=== PATIENT | female | born 1995 | race Hispanic/Latino ===

== ENCOUNTER → 2021-03-02 10:48 | Outpatient (CLI) | payer OTHER, SELFPAY ==
[2021-03-02] MEDS: COVID-19 VACC #2, MRNA(MOD) 100 MCG/0.5 ML VIAL IM (10:57)
== END ==
PROVIDERS: PCP Registered Nurse Diabetes Educator; Visit Provider Internal Medicine
DX: Z23 Encounter for immunization (principal)
CPT/HCPCS: 0012A; 91301

== ENCOUNTER → 2022-07-25 12:52 | Outpatient (CLI) | payer OTHER, SELFPAY ==
[2022-07-25 14:31] LABS: Add Manual Diff / Slide Review NO; Basophils Absolute Auto 0 /uL (0-100); Basophils Percent Auto 0.4 % (0-2); Eosinophils Absolute Auto 200 /uL (0-450); Hematocrit 39.3 % (36-46); Hemoglobin 13.8 g/dL (12.0-16.0); Lymphocytes Absolute Auto 1400 /uL (1100-4500); Lymphocytes Percent Auto 15.2 % (25-40); Mean Corpuscular Hemoglobin 32.9 PG (26-34); Mean Corpuscular Volume 93.9 fL (80-100); Monocytes Absolute Auto 800 /uL (0-900); Monocytes Percent Auto 8.2 % (3-14); Neutrophils Absolute Auto 6900 /uL (1500-7000); Neutrophils Percent Auto 74.2 % (50-75); Platelet Count 280 X10^3/uL (150-400); Red Blood Cell Count 4.19 X10^6/uL (4.0-5.2); Red Cell Distribution Width 12.7 % (11.6-14.8); White Blood Cell Count 9.3 X10^3/uL (4.5-11.0)
[2022-07-25 15:25] LABS: Appearance Urine UA CLEAR; Bilirubin Urine UA NEGATIVE (NEGATIVE); Color Urine UA YELLOW; Glucose Urine UA NEGATIVE (Negative); Ketones Urine UA NEGATIVE (NEGATIVE); Leukocyte Esterase Urine UA TRACE (NEGATIVE); Nitrite Urine UA NEGATIVE (Negative); Occult Blood Urine UA NEGATIVE (Negative); Protein Urine UA NEGATIVE (Negative); Urobilinogen Urine UA 0.2 E.U./dL (0.2)
[2022-07-25 15:26] LABS: pH Urine UA 6.5 (4.5-8.0)
[2022-07-25 16:56] LABS: Bacteria Urine Few (2-10); RBC Urine 1-5/HPF (0-5/HPF); Squamous Epithelial Cell Urine 5-10 /HPF (0-5/HPF); WBC Urine 5-10/HPF (0-5/HPF)
[2022-07-26 07:09] LABS: RPR Screen Non Reactive (Non Reactive)
[2022-07-26 11:36] LABS: Varicella IgG Antibody 152 index (Immune >165)
[2022-07-26 16:10] LABS: Hepatitis B Surface Antigen NEGATIVE s/c (NEGATIVE); Rubella Antibody IgG 10.9 IU/mL (>15)
[2022-07-26 16:22] LABS: HIV 1 & 2 Ab/Ag 4th Gen Combo NEGATIVE (NEGATIVE); Hep C Virus Ab w/Reflex Quant NEGATIVE s/c (NEGATIVE)
== END ==
PROVIDERS: PCP Registered Nurse Diabetes Educator; Referring Provider Family Medicine; Visit Provider Family Medicine
DX: Z34.01 Encounter for supervision of normal first pregnancy, first trimester (principal)
CPT/HCPCS: 36415; 80055; 81003; 81015; 86787; 86803; 86850; 86900; 86901; 87086; 87389

== ENCOUNTER → 2022-09-19 16:51 | Outpatient (CLI) | payer OTHER, SELFPAY ==
[2022-09-22 18:07] LABS: AFP, Serum 40.3 ng/mL (.); Estriol, Free 1.43 ng/mL (.); Inhibin A, Dimeric 149.58 pg/mL (.); Inhibin A, MoM 0.84 (.); Maternal Ethnicity Other (.); Maternal Weight 124 lbs (.); Number of Fetuses No (.); OSBR Risk 1 IN 10000 (.); Results Report (.); Test Results *Screen Negative* (.); hCG, MoM 0.41 (.); hCG, Serum 18834 mIU/mL (.)
== END ==
PROVIDERS: PCP Registered Nurse Diabetes Educator; Referring Provider Family Medicine; Visit Provider Family Medicine
DX: Z34.92 Encounter for supervision of normal pregnancy, unspecified, second trimester (principal); Z13.79 Encounter for other screening for genetic and chromosomal anomalies; Z3A.20 20 weeks gestation of pregnancy
CPT/HCPCS: 36415; 82105; 82677; 84702; 86336

== ENCOUNTER → 2022-10-18 08:43 | Outpatient (CLI) | payer OTHER, SELFPAY ==
--- NOTE | 2022-10-18 08:46 | DI.US.S_ITS ---
PROCEDURE: US OB >= 14 WEEKS FETUS INDICATIONS: Anatomy Scan OUTSIDE/PRIOR DATING DATA: Last menstrual period (LMP): 05/28/2022. LMP-based estimated date of delivery (GARY): 03/03/2023. First dating scan (date and location): 07/25/2022. Estimated date of delivery (GARY) from first dating scan: 02/28/2023. The calculations are made using the ultrasound GARY of 02/28/2023. TECHNIQUE: Real-time scanning was performed of the fetus, with image documentation and biometric measurements. COMPARISON: None. FINDINGS: General: A single living intrauterine gestation is present. Presentation: Vertex. Placenta: Placental position is posterior. Marginal placental previa. Amniotic fluid index: 11.1 cm, normal range is 5-24 cm. Single deepest vertical pocket is 4.2 cm. heart rate: 153 beats per minute. Maternal cervical canal: 4 cm long. Normal lower limit is 2.5 cm. biometrics: Biparietal diameter: 4.7 cm, 20 weeks 2 days Head circumference: 18.1 cm, 20 weeks 4 days Abdominal circumference: 15.1 cm, 20 weeks 2 days Femur length: 3.5 cm, 21 weeks 0 days Clinically estimated gestational age: 21 weeks 0 days Composite gestational age from present scan: 20 weeks 4 days Estimated weight and percentile: 366 g, 26 percentile Anatomic survey: Neuro: Ventricles are non-dilated at less than 10 mm. Cisterna magna is normal at 3-11 mm. Cerebellum is normal in size and morphology. Nuchal skin fold: Normal at less than 6 mm between 14-21 weeks gestational age. Face: Nose and lips, facial profile are normal. Spine: No evidence for spina bifida. Heart: 4-chambered heart is present, with normal ventricular outflow tracts. Diaphragm: Diaphragm is intact. Stomach: Left-sided stomach is present. Kidneys: No hydronephrosis. Normal is less than 5 mm in 2nd trimester, less than 7 mm in 3rd trimester. Cord: 3-vessel cord has orthotopic insertion. Bladder: Normal in size. Extremities: All 4 extremities identified. IMPRESSION: 1. Aragon living intrauterine at 20 weeks 4 days based on today's ultrasound. Fetus is in the 26 percentile for weight. 2. Normal amniotic fluid. Marginal placental previa. 3. Normal and complete anatomic survey. Recommend follow-up OB ultrasound to evaluate the placenta. We strive to produce accurate, complete, and clear reports of imaging services. To assist us in improving patient care, this report was composed using standard report templates and voice recognition software. Therefore, it may contain abnormal punctuation, insertions and/or omissions. Occasional wrong-word or sound-alike substitutions may occur. Though we review the report and make efforts to correct it, we do recommend that the report be read carefully in proper context to recognize any text inaccuracies. Dictated by: Jona Paniagua M.D. on 10/18/2022 at 10:19 Approved by: Jona Paniagua M.D. on 10/18/2022 at 10:24
== END ==
PROVIDERS: PCP Registered Nurse Diabetes Educator; Referring Provider Family Medicine; Visit Provider Family Medicine
DX: O44.22 Partial placenta previa NOS or without hemorrhage, second trimester (principal); Z3A.20 20 weeks gestation of pregnancy
CPT/HCPCS: 76811

== ENCOUNTER → 2022-11-08 15:38 | Outpatient (CLI) | payer OTHER, SELFPAY ==
--- NOTE | 2022-11-08 15:39 | DI.US.S_ITS ---
PROCEDURE: US OB FOLLOW UP INDICATIONS: placental placement OUTSIDE/PRIOR DATING DATA: Last menstrual period (LMP): 05/28/2022 LMP-based estimated date of delivery (GARY): 03/03/2023 First dating scan (date and location): 07/25/2022 Estimated date of delivery (GARY) from first dating scan: 02/28/2023 The calculations are made using the working GARY of 02/28/2023 TECHNIQUE: Real-time scanning was performed of the fetus, with image documentation. Endovaginal scanning: Performed for better visualization of the cervix COMPARISON: [facility], OB >= 14 WEEKS FETUS, 10/18/2022, 8:55. FINDINGS: A single living intrauterine gestation is present. Presentation: Vertex Placenta: Placental position is posterior. The inferior placental margin is approximately 0.7 cm from the internal cervical os. Amniotic fluid index: 12.1 cm, normal range is 5-24 cm. Single deepest vertical pocket is 3.3 cm. heart rate: 143 beats per minute. Maternal cervical canal: 4.1 cm long. Normal lower limit is 2.5 cm. Clinically estimated gestational age: 24 weeks 0 days IMPRESSION: 1. Single live intrauterine . 2. Low lying placenta with inferior placental margin approximately 0.7 cm from the internal cervical os. Cervix is normal in length and closed. 3. Normal in amniotic fluid index at 12.1 cm. Approved by: Rigoberto Stevens M.D. on 11/08/2022 at 20:11
== END ==
PROVIDERS: PCP Registered Nurse Diabetes Educator; Referring Provider Family Medicine; Visit Provider Family Medicine
DX: O44.02 Complete placenta previa NOS or without hemorrhage, second trimester (principal)
CPT/HCPCS: 76816; 76817

== ENCOUNTER → 2022-11-30 09:22 | Outpatient (CLI) | payer OTHER, SELFPAY ==
[2022-11-30 11:28] LABS: Hemoglobin 11.8 g/dL (12.0-16.0)
[2022-11-30 12:03] LABS: GTT (PREG) 1 Hour PP 50gm Dose 115 mg/dL (76-139)
== END ==
PROVIDERS: PCP Registered Nurse Diabetes Educator; Referring Provider Family Medicine; Visit Provider Family Medicine
DX: Z34.90 Encounter for supervision of normal pregnancy, unspecified, unspecified trimester (principal); Z3A.28 28 weeks gestation of pregnancy
CPT/HCPCS: 82950; 85014; 85018

== ENCOUNTER → 2022-12-17 09:03 | Outpatient (CLI) | payer OTHER, SELFPAY ==
--- NOTE | 2022-12-17 09:04 | DI.US.S_ITS ---
PROCEDURE: US OB FOLLOW UP INDICATIONS: FOLLOW-UP LOW-LYING PLACENTA OUTSIDE/PRIOR DATING DATA: Last menstrual period (LMP): 05/28/2022 LMP-based estimated date of delivery (GARY): 03/03/2023 First dating scan (date and location): 07/25/2022. Estimated date of delivery (GARY) from first dating scan: 02/28/2023. The calculations are made using the working GARY of 02/28/2023. TECHNIQUE: Real-time scanning was performed of the fetus, with image documentation. Endovaginal scanning: Not indicated COMPARISON: , , OB FOLLOW UP, 11/08/2022, 15:48. FINDINGS: A single living intrauterine gestation is present. Presentation: Vertex Placenta: Placental position is posterior, without previa. Inferior edge of placenta is now 5.8 cm from internal os. Amniotic fluid index: 11.7 cm, normal range is 5-24 cm. Single deepest vertical pocket is 3.6 cm. heart rate: 144 beats per minute. Maternal cervical canal: 3.2 cm long. Normal lower limit is 2.5 cm. Clinically estimated gestational age: Not available Estimated gestational age from initial scan: 29 weeks, 4 days. IMPRESSION: 1. Single live intrauterine gestation with fetus in vertex presentation. heart rate is 144 beats per minute. Normal amount of amniotic fluid. 2. Inferior edge of placenta is now 5.8 cm from internal os and is within normal limits. Dictated by: Rasheed Burnett M.D. on 12/17/2022 at 11:10 Approved by: Rasheed Burnett M.D. on 12/17/2022 at 11:24
== END ==
PROVIDERS: PCP Registered Nurse Diabetes Educator; Referring Provider Family Medicine; Visit Provider Family Medicine
DX: O44.03 Complete placenta previa NOS or without hemorrhage, third trimester (principal); Z3A.29 29 weeks gestation of pregnancy
CPT/HCPCS: 76816

== ENCOUNTER → 2023-02-08 15:13 | Outpatient (CLI) | payer OTHER, SELFPAY ==
[2023-02-09 20:42] LABS: Strep Grp B PCR NEG for Grp B Strep
== END ==
PROVIDERS: PCP Registered Nurse Diabetes Educator; Visit Provider Family Medicine
DX: Z34.03 Encounter for supervision of normal first pregnancy, third trimester (principal); Z3A.36 36 weeks gestation of pregnancy
CPT/HCPCS: 87653

== ENCOUNTER 2023-02-11 06:15 | Observation (INO) | payer OTHER, SELFPAY ==
[2023-02-11 06:56] VITALS: BP 122/79
== END 2023-02-11 08:35 | disposition home or self-care (01) ==
PROVIDERS: Admitting Provider Family Medicine; PCP Registered Nurse Diabetes Educator; Referring Provider Family Medicine; Visit Provider Family Medicine
DX: O36.8130 Decreased fetal movements, third trimester, not applicable or unspecified (principal); O46.93 Antepartum hemorrhage, unspecified, third trimester; Z3A.37 37 weeks gestation of pregnancy
CPT/HCPCS: 59025; 59050; G0378; G0379

== ENCOUNTER 2023-02-11 16:41 | Inpatient (IN) | payer OTHER, SELFPAY ==
[2023-02-11 19:24] LABS: Add Manual Diff / Slide Review NO; Basophils Absolute Auto 100 /uL (0-100); Basophils Percent Auto 0.6 % (0-2); Eosinophils Absolute Auto 100 /uL (0-450); Eosinophils Percent Auto 0.6 % (2-4); Hematocrit 35.6 % (36-46); Lymphocytes Absolute Auto 2300 /uL (1100-4500); Lymphocytes Percent Auto 21.4 % (25-40); Mean Corpuscular HGB Conc 33.7 % (30-36); Mean Corpuscular Hemoglobin 30.1 PG (26-34); Mean Corpuscular Volume 89.3 fL (80-100); Monocytes Absolute Auto 1000 /uL (0-900); Monocytes Percent Auto 9.4 % (3-14); Neutrophils Absolute Auto 7400 /uL (1500-7000); Platelet Count 213 X10^3/uL (150-400); Red Blood Cell Count 3.99 X10^6/uL (4.0-5.2); Red Cell Distribution Width 13.8 % (11.6-14.8); White Blood Cell Count 10.8 X10^3/uL (4.5-11.0)
--- NOTE | 2023-02-11 20:19 | PM.OBHP.IH.1 ---
OB HPI Date/Time Date of admission: 02/11/23 Date Patient Seen: 02/11/23 History of Present Condition Chief complaint: OBS/LABOR GARY Calculator Estimated Delivery Date Method Current WG Current Estimate 03/03/23 Manual 37w 1d Final GARY - CHIKA Other Estimates 03/03/23 LMP (Certain) 37w 1d 02/28/23 Ultrasound #1 37w 4d Estimated Gestational Age (weeks): 37w1d : 1 Para: 0 Narrative: 27yo at 37w1d who presented with regular painful contractions. Pt reports contractions starting earlier today. She had a gush of fluid around 16:00. She has had vaginal spotting/bleeding today as well. She is feeling her baby move regularly. Her was complicated by marginal previa, resolved on repeat u/s. care: good care, initiated at week # (8) and pounds weight gain (39) Dating criteria OB: LMP confirmed by 1st trimester US Ultrasounds: normal 1st trimester US and normal mid trimester US (marginal previa, resolved on repeat) Obstetrical complications: none Medical complications OB: none Preadmission Labs Last OB Lab Results: Blood Type A Positive 07/25/22 13:26 Antibody Screen Negative 07/25/22 13:26 Hematocrit 35.6 % (36-46) L 02/11/23 17:40 Hemoglobin 12.0 g/dL (12.0-16.0) 02/11/23 17:40 Hepatitis B Surface Antigen Negative s/c (NEGATIVE) 07/25/22 13:26 Hepatitis C Antibody Negative s/c (NEGATIVE) 07/25/22 13:26 Rubella Antibody 10.9 IU/mL (>15) L 07/25/22 13:26 Varicella-Zoster IgG Antibody 152 index (Immune >165) L 07/25/22 13:26 Glucose 1 Hour 115 mg/dL (76-139) 11/30/22 10:42 Group B Streptococcus (PCR) Neg for grp b strep 02/08/23 15:13 -: Urine: negative Genetic Screens: Quad screen: Normal External Labs -: Urine: negative Evaluation Evaluation Baseline heart rate: 120 Variability: Moderate (11-25) monitor accelerations: Present Monitor Decelerations: Absent Contraction Frequency (minutes): 3 Uterine Contraction Intensity: Strong/Firm Status: Category l Dilation (cm): 5.5 Effacement (%): 90 station: -1 [facility] Medical History Anxiety (2012) Encounter for routine adult health examination without abnormal findings Hayfever (2009) History of heavy periods (2009) Irregular periods/menstrual cycles (2008) Painful menstrual periods (2009) Surgical History Anesthesia History of third molar tooth extraction (~2011) History of tonsillectomy and adenoidectomy (~2001) Family History Father Hyperlipidemia Sleep apnea Mother Breast cancer Seasonal allergies Anxiety H/O: hysterectomy Brother No problems noted. Sister No problems noted. Grandfather Heart disease Heart attack Grandmother Heart failure COPD (chronic obstructive pulmonary disease) Heart disease Smoker Tremor Grandfather Dementia Arthritis Grandmother Arthritis Gallstones Family/Other Colon cancer Family/Other Breast cancer Social History marital status: number of children: 0 household members: spouse housing: apartment pets and animals: Yes (2 cats, manages litter box) education level: master's degree occupational status: employed current occupational exposures/hazards: No special garcia needs: No travel history: recent (domestic only) seatbelt use: always water heater temp set < 120 deg: Yes working smoke detector in home: Yes fire extinguisher in home: Yes carbon monox detector in home: Yes firearms in home: No do you feel safe at home: Yes Smoking Status: Never smoker second hand exposure: No alcohol intake: former (mixed drinks occasionally. ) substance use type: does not use during the past year weight has: other (15-20 lb fluctuations regularly) well-balanced diet: daily or most days daily servings fruits/ve or more times/day caffeine: Yes (Aware of 200mg limit) Type(s) of exercise: walking, regular exercise and other (hiking) frequency: 3-4 times per week Meds Home Medications and Allergies Home Medications Medication Instructions Recorded Confirmed Type cetirizine 10 mg tablet (Zyrtec) 10 mg PO DAILY 09/16/18 02/11/23 History prenat.vits,eula,bsb-egza-tumkk 1 tab PO DAILY 06/21/22 02/11/23 History Allergies Allergy/AdvReac Type Severity Reaction Status Date / Time No Known Drug Allergies Allergy Verified 02/11/23 06:57 OB Exam Narrative Exam Narrative: Gen: NAD, sitting comfortably in bed, appears well CV: RRR, no murmurs Resp: clear to auscultation bilaterally Abd: soft, nontender, gravid Ext: no edema Objective Labs 02/11/23 17:40 Labs: Laboratory Results - last 24 hr 02/11/23 17:40 WBC 10.8 RBC 3.99 L Hgb 12.0 Hct 35.6 L MCV 89.3 MCH 30.1 MCHC 33.7 RDW 13.8 Plt Count 213 Neut % (Auto) 68.0 Lymph % (Auto) 21.4 L [place] % (Auto) 9.4 Eos % (Auto) 0.6 L Baso % (Auto) 0.6 Neut # (Auto) 7400 H Lymph # (Auto) 2300 [place] # (Auto) 1000 H Eos # (Auto) 100 Baso # (Auto) 100 Assessment and Plan Assessment and Plan Assessment and Plan narrative: 27yo at 37w1d here in active labor. GBS negative, Rh positive. - Expectant management, anticipate - FHT reassuring - GBS negative, no prophylaxis indicated - Epidural in place for pain control
[2023-02-11] MEDS: TRANEXAMIC ACID 1,000 MG in SODIUM CHLORIDE 0.9% 100 ML 200 MG IV (21:45)
[2023-02-11] MEDS: METHYLERGONOVINE 0.2 MG/ML VIAL IM (21:52)
[2023-02-11] MEDS: OXYTOCIN PREMIX 30 UNIT/500 ML PLAST..BAG 200 UNIT IV (21:54)
--- NOTE | 2023-02-11 21:56 | P.PCNOB_ITS ---
Labor & Delivery Delivery date: 02/11/23 Intrapartal Events: Extended Bradycardia Cervical ripening method: none Induction method: none Delivery monitor: external FHT and external uterine Route of delivery: vacuum extraction Indication for instrumentation: nonreassuring FHR tracing Episiotomy description: None L&D Laceration Description: Perineal - 1st Degree and Labial (right) Quantitative Blood Loss: 450 Anesthesia Type: Epidural Complications: None Narrative: PROCEDURE: at 37w1d presented in active labor and was admitted to Labor and Delivery. The patient progressed through the 1st stage over 5.5 hours. ROM occured at 16:00 with clear fluid. Pain was controlled with an epidural. The patient progressed through the 2nd stage over 48min. Due to nonreassuring heart tones with prolonged bradycardia to the 90-100s, the decision was made to proceed with vacuum-assisted vaginal delivery when the pt was +2 station. Patient was evaluated and noted to have adequate pain control. Patient counseled on risks/benefits/alternatives of vacuum assisted delivery. Risks were discussed and they included but were not limited to a need for an episiotomy, pressure merlos on the baby, lacerations to the baby's scalp/face, serious damage including skull fracture, the need to proceed with an abdominal procedure, , paralysis of the baby's arms and/or legs, neurological impairment of the baby. Alternatives would include CS or further observation depending on status. Questions were answered and the patient verbalized an understanding and decided to proceed. Vacuum cup of the [place] OmniCup applied to the flexion point without difficulty and during contractions, pressure applied between 400-600 mmHg as indicated in the green zone of the pressure gauge. delivered after 2 contractions with 0 pop-offs over an intact perineum. The anterior shoulder and remainder of the was delivered without difficulty. The pt delivered a viable female with APGARs 7/9 at 21:22. The cord was cut and clamped after it stopped pulsating. Cord gasses were sent. The placenta delivered with gentle cord traction, and appeared complete. There was significant uterine atony after delivery with heavy bleeding, controlled with bimanual massage, methergine, pitocin, cytotec, and TXA. The perineum and vagina were inspected with deep 1st degree repaired with 2-O Vicryl and right la bial repaired with 3-O Chromic lacerations. Infant was examined and no evidence of injury noted. Needle and sponge counts were correct.? The vagina was inspected and no items were left in situ. PREPROCEDURE DIAGNOSIS: Intrauterine at 37w1d GBS negative RH positive POSTPROCEDURE DIAGNOSIS: Intrauterine at 37w1d, delivered Same as preprocedure Vacuum-assisted vaginal delivery Nonreassuring FHT [place] Baby 1: gender: Female Presentation: compound (with right hand) Position: Left Occiput Anterior Placenta delivery description: Spontaneous Cord Vessel Description: 3 Vessels score (1 min): 7 score (5 min): 9 weight: 6 lb 7.705 oz Plan for aftercare: Routine care
[2023-02-11] MEDS: ONDANSETRON 4 MG/2 ML INJ IV (23:05)
[2023-02-12 02:08] VITALS: BP 128/86
[2023-02-12] MEDS: ACETAMINOPHEN 325 MG TABLET 650 MG PO ×2 (04:21→10:35)
[2023-02-12] MEDS: IBUPROFEN 600 MG TABLET PO ×3 (04:22→19:40)
[2023-02-12] MEDS: DERMOPLAST SPRAY 20% 60 ML 1 SPRAY TOP (04:23)
[2023-02-12 06:13] LABS: Hemoglobin 10.9 g/dL (12.0-16.0)
[2023-02-12] MEDS: DOCUSATE 100 MG CAPSULE PO (09:13)
[2023-02-12] MEDS: FERROUS SULFATE 325 MG TABLET PO (09:13)
[2023-02-12 11:20] VITALS: BP 107/58; PULSE 57; RESP 16; TEMP 37.1
--- NOTE | 2023-02-12 15:18 | PM.OBDS.1 ---
Discharge Providers Provider Date of admission: 02/11/23 16:41 Discharge Date: 02/12/23 Primary care physician: KUSUM Kam Consults: 02/11/23 19:16 Consult to Anesthesiology Urgent Comment: Consulting Provider: Anesthesiologist Reason for consultation: Epidural 02/12/23 21:58 Consult to Mechanical Energy Engineer Routine Comment: Discharge provider: Shereen Mendoza MD Summary Hospital Course Date Patient Seen: 02/12/23 Diagnoses: 37w1d gestation GBS negative Rh positive Nonreassuring FHT Vacuum-assisted Hospital Course: The pt presented in active labor. She had an epidural for pain control. She progressed to complete. Due to nonreassuring FHT, the decision was made to proceed with vacuum-assisted . The pt delivered a viable baby girl. Due to heavy bleeding, multiple tocolytics and bimanual massage were used to control bleeding. There were no additional complications. At the time of discharge she was voiding, ambulating, and passing flatus without difficulty. Her lochia was decreasing appropriately. Her pain was well controlled. She will f/u in 6 weeks for check. She would like natural methods for contraception. Peripartum Data Delivery Method: Assisted Delivery Time Spent with Patient Time attestation: Total time spent providing and/or coordinating discharge services: Objective Labs 02/12/23 06:00 Labs: Laboratory Results - last 24 hr 02/11/23 02/11/23 02/12/23 17:40 17:40 06:00 WBC 10.8 RBC 3.99 L Hgb 12.0 10.9 L Hct 35.6 L 32.0 L MCV 89.3 MCH 30.1 MCHC 33.7 RDW 13.8 Plt Count 213 Neut % (Auto) 68.0 Lymph % (Auto) 21.4 L [place] % (Auto) 9.4 Eos % (Auto) 0.6 L Baso % (Auto) 0.6 Neut # (Auto) 7400 H Lymph # (Auto) 2300 [place] # (Auto) 1000 H Eos # (Auto) 100 Baso # (Auto) 100 Blood Type A Positive Antibody Screen Negative Discharge Plan Discharge Plan Patient Disposition: Home Discharge orders & Medications Prescriptions: New acetaminophen 325 mg Tablet 650 mg PO Q6HR PRN (Reason: Pain, Mild (1-3)) Qty: 30 0RF docusate sodium 100 mg Capsule 100 mg PO DAILY Qty: 30 0RF ferrous sulfate 325 mg (65 mg iron) Tablet 325 mg PO DAILY Qty: 30 0RF ibuprofen 600 mg Tablet 600 mg PO Q6HR PRN (Reason: Pain, Mild (1-3)) Qty: 30 0RF Continued cetirizine [Zyrtec] 10 mg tablet 10 mg PO DAILY prenat.vits,eula,mjh-xyte-mielq Tablet 1 tab PO DAILY Follow up/Referrals: Shereen Mendoza MD [Physician] - 6 Weeks (please make an appointment to see in six weeks for check) Gianfranco Loyola ARNP [Primary Care Provider] - Diet/Activity/Treatments Diet: Diet as Tolerated and Regular Skin/Wound/Dressing Care Report to your healthcare provider any signs of infection, such as:: chills, fever, increased pain and unusual drainage Visit Report/Discharge Packet Instructions: DI for Labor and Delivery, Vaginal Stand Alone Forms: Patient Portal/API, Stroke Signs & Symptoms Discharge Data Primary Care Provider: Gianfranco Loyola Discharges patient from system. Discharge Date/Time: 02/12/23 20:40
== END 2023-02-12 20:40 | disposition home or self-care (01) | DRG 807 ==
PROVIDERS: Admitting Provider Family Medicine; PCP Registered Nurse Diabetes Educator; Referring Provider Family Medicine; Visit Provider Family Medicine
DX: O80 Encounter for full-term uncomplicated delivery (principal); Z37.0 Single live birth; Z3A.37 37 weeks gestation of pregnancy; Z34.03 Encounter for supervision of normal first pregnancy, third trimester; Z3A.36 36 weeks gestation of pregnancy
CPT/HCPCS: 36415; 59025; 59050; 59400; 85014; 85018; 85025; 86850; 86900; 86901; 87653; G0378; G0379; J2210; J2405; J2590

== ENCOUNTER → 2023-09-23 10:42 | Outpatient (CLI) | payer OTHER, SELFPAY ==
[2023-09-23 11:13] LABS: Appearance Urine UA CLEAR; Bilirubin Urine UA NEGATIVE (NEGATIVE); Color Urine UA YELLOW; Glucose Urine UA NEGATIVE (Negative); Ketones Urine UA TRACE (NEGATIVE); Leukocyte Esterase Urine UA NEGATIVE (NEGATIVE); Nitrite Urine UA NEGATIVE (Negative); Occult Blood Urine UA NEGATIVE (Negative); Protein Urine UA NEGATIVE (Negative); Specific Gravity Urine UA 1.025 (1.000-1.035); Urobilinogen Urine UA 0.2 E.U./dL (0.2)
[2023-09-23 11:53] LABS: Add Manual Diff / Slide Review NO; Basophils Absolute Auto 0 /uL (0-100); Basophils Percent Auto 0.3 % (0-2); Eosinophils Absolute Auto 100 /uL (0-450); Hematocrit 42.9 % (36-46); Lymphocytes Absolute Auto 1300 /uL (1100-4500); Lymphocytes Percent Auto 16.5 % (25-40); Mean Corpuscular HGB Conc 34.9 % (30-36); Mean Corpuscular Volume 94.4 fL (80-100); Monocytes Absolute Auto 600 /uL (0-900); Neutrophils Absolute Auto 6100 /uL (1500-7000); Neutrophils Percent Auto 75.2 % (50-75); Platelet Count 253 X10^3/uL (150-400); Red Blood Cell Count 4.54 X10^6/uL (4.0-5.2); Red Cell Distribution Width 13.3 % (11.6-14.8); White Blood Cell Count 8.1 X10^3/uL (4.5-11.0)
[2023-09-23 13:06] LABS: Hepatitis B Surface Antigen NEGATIVE s/c (NEGATIVE); Rubella Antibody IgG 12.5 IU/mL (>15)
[2023-09-23 13:22] LABS: HIV 1 & 2 Ab/Ag 4th Gen Combo NEGATIVE (NEGATIVE); Hep C Virus Ab w/Reflex Quant NEGATIVE s/c (NEGATIVE)
[2023-09-24 05:13] LABS: RPR Screen Non Reactive (Non Reactive)
[2023-09-24 12:12] LABS: Varicella IgG Antibody 166 index (Immune >165)
== END ==
PROVIDERS: PCP Family Medicine; Referring Provider Family Medicine; Visit Provider Family Medicine
DX: Z34.80 Encounter for supervision of other normal pregnancy, unspecified trimester (principal)
CPT/HCPCS: 36415; 80055; 81003; 86787; 86803; 86850; 86900; 86901; 87077; 87086; 87147; 87389

== ENCOUNTER → 2023-10-02 17:11 | Outpatient (CLI) | payer OTHER, SELFPAY | PROVIDERS: PCP Family Medicine; Visit Provider Family Medicine | DX: Z34.80 Encounter for supervision of other normal pregnancy, unspecified trimester (principal); B95.1 Streptococcus, group B, as the cause of diseases classified elsewhere | CPT/HCPCS: 87086 ==

== ENCOUNTER → 2023-11-22 14:27 | Outpatient (CLI) | payer OTHER, SELFPAY ==
[2023-11-26 22:19] LABS: AFP, Serum 35.3 ng/mL (.); Estriol, Free 1.24 ng/mL (.); Inhibin A, Dimeric 138.82 pg/mL (.); Inhibin A, MoM 0.78 (.); Maternal Ethnicity Other (.); Maternal Weight 139 lbs (.); Number of Fetuses No (.); OSBR Risk 1 IN 10000 (.); Results Report (.); Test Results *Screen Negative* (.); hCG, MoM 0.57 (.); hCG, Serum 15473 mIU/mL (.)
[2023-11-27 07:19] LABS: AFP PDF SCANNED
== END ==
PROVIDERS: PCP Family Medicine; Referring Provider Family Medicine; Visit Provider Family Medicine
DX: Z34.80 Encounter for supervision of other normal pregnancy, unspecified trimester (principal); Z3A.19 19 weeks gestation of pregnancy
CPT/HCPCS: 36415; 82105; 82677; 84702; 86336

== ENCOUNTER 2023-11-28 12:02 | Observation (INO) | payer OTHER, SELFPAY ==
--- NOTE | 2023-11-28 13:08 | P.TNLD_ITS ---
Visit Information Visit Information Date of evaluation: 11/28/23 Primary OB Provider: Shereen Mendoza On-call OB Provider: Maggie Pan Comments/Additional reasons for admission: 28 yo at 20w3d presenting for vaginal bleeding today. Last week she had vaginal bleeding after intercourse but this resolved 3 days later. This morning she noticed bright red bleeding with wiping after voiding. This continued after wiping a few times so she decided to come in. She is feeling baby move. She has noticed abdominal cramping during this time period as well. No vaginal discharge that she has noticed. FORMERLY [facility], [facility] Medical History (Updated 08/20/23 @ 10:20 by Xiao Singh, MATT) Spontaneous vaginal delivery Encounter for routine adult health examination without abnormal findings History of heavy periods (2009) Irregular periods/menstrual cycles (2008) Painful menstrual periods (2009) Hayfever (2009) Anxiety (2012) Surgical History Anesthesia History of third molar tooth extraction (~2011) History of tonsillectomy and adenoidectomy (~2001) Family History (Updated 08/20/23 @ 10:25 by Xiao Singh, MATT) Father Hyperlipidemia Sleep apnea Mother Breast cancer Seasonal allergies Anxiety Congestive heart failure History of bilateral mastectomy Asthma History of endometrial ablation Brother No problems noted. Sister No problems noted. Grandfather Heart disease Heart attack Grandmother Heart failure COPD (chronic obstructive pulmonary disease) Heart disease Smoker Tremor Grandfather Dementia Arthritis Grandmother Arthritis Gallstones Aunt Colon cancer Aunt Breast cancer Social History marital status: number of children: 1 household members: spouse and children lives independently: Yes caregiver/support person: Yes housing: house pets and animals: Yes (2 cats, manages litter box) education level: master's degree occupational status: employed current occupational exposures/hazards: No special garcia needs: No travel history: over 6 months ago seatbelt use: always water heater temp set < 120 deg: Yes working smoke detector in home: Yes fire extinguisher in home: Yes carbon monox detector in home: Yes firearms in home: No do you feel safe at home: Yes Smoking Status: Never smoker second hand exposure: No alcohol intake: former substance use type: does not use during the past year weight has: other well-balanced diet: about half the time daily servings fruits/ve-4 caffeine: Yes (Aware of 200mg limit) Type(s) of exercise: walking frequency: 3-4 times per week Review of Systems Review of Systems Narrative: Endorses movement no dysuria/urinary urgency. Endorses stable urinary frequency consistent with her time during No fevers Endorses uterine cramping Endorses vaginal bleeding Exam Narrative Exam Narrative: GEN: Healthy appearing, well-developed, NAD. PSYCH: Good Judgment. AOx3. Normal memory, mood, and affect HEENT: -Head: NC/AT -Eyes: No discharge or redness CV: warm and well perfused LUNGS: breathing comfortably on RA SKIN: Warm, well perfused. No skin rashes or abnormal lesions : External genitalia nml. No blood noted at introitus. With SSE, dark brown bleeding noted at the cervical os. No bright red blood visualized. Vaginal elizabeth within normal limits, no sing of lacerations. Cervix nml, not fraible. MSK: Normal gait. No deformities NEURO: Ambulating with no limitations. No focal deficits Objective Labs Labs: Wet mount collected. Many squamous epithelial cells visualized. No trichamonas, no yeast seen, no clue cells. Diagnosis, Plan/Disposition Plan/Disposition Plan: 28 yo at 20w3d presenting with vaginal bleeding and uterine cramping. Spec exam showing dark brown blood at cervical os. FHR in 140s, mom feeling baby move. US showing normal placenta location/no sign of previa, no concern for abruption. UA wtih few squamous epithelial cells and 0-1 bacteria. Wet mount negative, no sign of infectious cause. Discussed with mom that it is unclear the source of the bleeding but at current GA, previable so best plan is watchful waiting. Recommend returning to care if heavy vaginal bleeding occurs as this would be concerning for maternal hemorrhage. - Blood type A+, no rhogam needed. - Return precautions reviewed - Will send urine for culture - F/up with primary Ob in 1-2 weeks - Reviewed that plan may change after viability if bleeding were to recur
[2023-11-28 13:23] LABS: Appearance Urine UA CLEAR; Bilirubin Urine UA NEGATIVE (NEGATIVE); Color Urine UA YELLOW; Glucose Urine UA NEGATIVE (Negative); Ketones Urine UA NEGATIVE (NEGATIVE); Leukocyte Esterase Urine UA NEGATIVE (NEGATIVE); Nitrite Urine UA NEGATIVE (Negative); Occult Blood Urine UA NEGATIVE (Negative); Protein Urine UA NEGATIVE (Negative); Urobilinogen Urine UA 0.2 E.U./dL (0.2)
--- NOTE | 2023-11-28 13:26 | DI.US.S_ITS ---
PROCEDURE: US OB LIMITED INDICATIONS: BLEEDING; CHECK PLACENTAL LOCATION OUTSIDE/PRIOR DATING DATA: Last menstrual period (LMP): 07/07/2023. LMP-based estimated date of delivery (GARY): 04/13/2024. First dating scan (date and location): 09/23/2023. Estimated date of delivery (GARY) from first dating scan: 04/20/2024. The calculations are made using the working GARY of 04/20/2024. TECHNIQUE: Real-time scanning was performed of the fetus, with image documentation. Endovaginal scanning: None COMPARISON: None. FINDINGS: A single living intrauterine gestation is present. Presentation: Vertex. Placenta: Placental position is fundal, without previa. Amniotic fluid index: 12.5 cm, normal range is 5-24 cm. Single deepest vertical pocket is 4.1 cm. heart rate: 145 beats per minute. Maternal cervical canal: 3.7 cm long. Normal lower limit is 2.5 cm. Estimated gestational age from initial scan: 19 week 3 day. IMPRESSION: Single live intrauterine consistent with a 19 week 3 day gestation. No evidence of placental previa or abruption Approved by: Mark Smith M.D. on 11/28/2023 at 14:01
[2023-11-28 13:27] LABS: pH Urine UA 6.5 (4.5-8.0)
[2023-11-28 13:30] LABS: RBC Urine None Seen (0-5/HPF); Urine Volume 10mL (spun)
[2023-11-28 13:31] LABS: Bacteria Urine Occasional (0-1); Culture Indicated Urine Cult Not Indicated; Squamous Epithelial Cell Urine 1-5 /HPF (0-5/HPF); WBC Urine None Seen (0-5/HPF)
== END 2023-11-28 14:15 | disposition home or self-care (01) ==
PROVIDERS: Family Medicine; Admitting Provider Family Medicine; PCP Family Medicine; Referring Provider Family Medicine; Visit Provider Family Medicine
DX: O46.92 Antepartum hemorrhage, unspecified, second trimester (principal); O26.892 Other specified pregnancy related conditions, second trimester; N94.89 Other specified conditions associated with female genital organs and menstrual cycle; Z3A.20 20 weeks gestation of pregnancy
CPT/HCPCS: 59025; 76815; 81001; 87086; 87210; G0378; G0379

== ENCOUNTER → 2023-12-13 16:12 | Outpatient (CLI) | payer OTHER, SELFPAY ==
--- NOTE | 2023-12-13 16:14 | DI.US.S_ITS ---
PROCEDURE: US OB >= 14 WEEKS FETUS INDICATIONS: ANATOMY OUTSIDE/PRIOR DATING DATA: Last menstrual period (LMP): July 07, 2023. LMP-based estimated date of delivery (GARY): April 13, 2024. First dating scan (date and location): September 23, 2023. Estimated date of delivery (GARY) from first dating scan: April 20, 2024 TECHNIQUE: Real-time scanning was performed of the fetus, with image documentation and biometric measurements. Endovaginal scanning: Not performed COMPARISON: None. FINDINGS: General: A single living intrauterine gestation is present. Presentation: Vertex. Placenta: Placental position is posterior fundal , without previa. Amniotic fluid index: 15.7 cm, normal range is 5-24 cm. Single deepest vertical pocket is 5.0 cm. heart rate: 141 beats per minute. Maternal cervical canal: 3.5cm long. Normal lower limit is 2.5 cm. biometrics: Biparietal diameter: 5.1 cm, 21 weeks 3 days Head circumference: 18.9 cm, 21 weeks 1 day Abdominal circumference: 15.1 cm, 20 weeks 2 days Femur length: 3.5 cm, 20 weeks 6 days Clinically estimated gestational age: 22 weeks, 4 days Composite gestational age from present scan: 21 weeks, 0 days Estimated weight and percentile: 369 g, 1% Anatomic survey: Neuro: Ventricles are non-dilated at less than 10 mm. Cisterna magna and cerebellum are poorly visualized. Nuchal skin fold: Not well characterized Face: Nose and lips, facial profile are normal. Spine: No evidence for spina bifida. Heart: 4-chambered heart is present, with normal ventricular outflow tracts. Diaphragm: Diaphragm is intact. Stomach: Left-sided stomach is present. Kidneys: No hydronephrosis. Normal is less than 5 mm in 2nd trimester, less than 7 mm in 3rd trimester. Cord: Three-vessel cord. There may be a marginal cord insertion at the placenta which is not well characterized. Bladder: Normal in size. Extremities: All 4 extremities identified. IMPRESSION: 1. Limited anatomic evaluation as described above. Portions of the neuro anatomy and cord anatomy are not well characterized given lie. Short interval follow-up is recommended. Marginal cord insertion cannot be excluded. 2. Estimated weight percentile of 1%. Findings suggest IUGR. We strive to produce accurate, complete, and clear reports of imaging services. To assist us in improving patient care, this report was composed using standard report templates and voice recognition software. Therefore, it may contain abnormal punctuation, insertions and/or omissions. Occasional wrong-word or sound-alike substitutions may occur. Though we review the report and make efforts to correct it, we do recommend that the report be read carefully in proper context to recognize any text inaccuracies. Dictated by: Briseida Michelle M.D. on 12/14/2023 at 11:59 Approved by: Briseida Michelle M.D. on 12/14/2023 at 12:05
== END ==
PROVIDERS: PCP Family Medicine; Referring Provider Family Medicine; Visit Provider Family Medicine
DX: Z34.82 Encounter for supervision of other normal pregnancy, second trimester (principal); Z3A.21 21 weeks gestation of pregnancy
CPT/HCPCS: 76811

== ENCOUNTER → 2024-01-20 15:48 | Outpatient (CLI) | payer OTHER, SELFPAY ==
[2024-01-20 17:47] LABS: Add Manual Diff / Slide Review NO; Basophils Absolute Auto 0 /uL (0-100); Basophils Percent Auto 0.3 % (0-2); Eosinophils Absolute Auto 100 /uL (0-450); Eosinophils Percent Auto 1.4 % (2-4); Hematocrit 36.6 % (36-46); Hemoglobin 12.5 g/dL (12.0-16.0); Lymphocytes Absolute Auto 1400 /uL (1100-4500); Lymphocytes Percent Auto 13.5 % (25-40); Mean Corpuscular HGB Conc 34.3 % (30-36); Mean Corpuscular Hemoglobin 33.3 PG (26-34); Mean Corpuscular Volume 97.2 fL (80-100); Monocytes Absolute Auto 800 /uL (0-900); Monocytes Percent Auto 7.3 % (3-14); Neutrophils Absolute Auto 8100 /uL (1500-7000); Neutrophils Percent Auto 77.5 % (50-75); Platelet Count 294 X10^3/uL (150-400); Red Blood Cell Count 3.76 X10^6/uL (4.0-5.2); Red Cell Distribution Width 12.8 % (11.6-14.8); White Blood Cell Count 10.5 X10^3/uL (4.5-11.0)
[2024-01-20 18:10] LABS: GTT (PREG) 1 Hour PP 50gm Dose 108 mg/dL (76-139)
== END ==
PROVIDERS: PCP Family Medicine; Referring Provider Family Medicine; Visit Provider Family Medicine
DX: Z34.80 Encounter for supervision of other normal pregnancy, unspecified trimester (principal)
CPT/HCPCS: 36415; 82950; 85025

== ENCOUNTER 2024-03-13 16:35 | Outpatient (CLI) | payer OTHER, SELFPAY ==
--- NOTE | 2024-03-13 16:55 | PM.OBTRLD ---
Visit Information Visit Information Date of evaluation: 03/13/24 Primary OB Provider: Shereen Mendoza Comments/Additional reasons for admission: 28yo at 35w4d here for NST due to marginal cord insertion, concern for FGR. Pt is feeling baby move regularly. No vaginal bleeding, LOF, contractions. [facility] Medical History (Updated 03/16/24 @ 09:28 by Shereen Mendoza MD) Spontaneous vaginal delivery Encounter for routine adult health examination without abnormal findings History of heavy periods (2009) Irregular periods/menstrual cycles (2008) Painful menstrual periods (2009) Hayfever (2009) Anxiety (2012) Surgical History Anesthesia History of third molar tooth extraction (~2011) History of tonsillectomy and adenoidectomy (~2001) Family History (Updated 08/20/23 @ 10:25 by Xiao Singh RN) Father Hyperlipidemia Sleep apnea Mother Breast cancer Seasonal allergies Anxiety Congestive heart failure History of bilateral mastectomy Asthma History of endometrial ablation Brother No problems noted. Sister No problems noted. Grandfather Heart disease Heart attack Grandmother Heart failure COPD (chronic obstructive pulmonary disease) Heart disease Smoker Tremor Grandfather Dementia Arthritis Grandmother Arthritis Gallstones Aunt Colon cancer Aunt Breast cancer Social History marital status: number of children: 1 household members: spouse and children lives independently: Yes caregiver/support person: Yes housing: house pets and animals: Yes (2 cats, manages litter box) education level: master's degree occupational status: employed current occupational exposures/hazards: No special garcia needs: No travel history: over 6 months ago seatbelt use: always water heater temp set < 120 deg: Yes working smoke detector in home: Yes fire extinguisher in home: Yes carbon monox detector in home: Yes firearms in home: No do you feel safe at home: Yes Smoking Status: Never smoker second hand exposure: No alcohol intake: former substance use type: does not use during the past year weight has: other well-balanced diet: about half the time daily servings fruits/ve-4 caffeine: Yes (Aware of 200mg limit) Type(s) of exercise: walking frequency: 3-4 times per week Evaluation Evaluation Baseline heart rate: 135 Variability: Moderate (11-25) monitor accelerations: Present Monitor Decelerations: Absent Category of Tracing: Reactive Diagnosis, Plan/Disposition Final Diagnosis (1) 35 weeks gestation of : Status: Acute (2) Marginal insertion of umbilical cord: Status: Acute Plan/Disposition Plan: 28yo at 35w4d here for NST due to marginal cord insertion, concern for FGR at [facility] recommendation. NST reactive. Stable for d/c home. Continue weekly NSTs. OB Disposition: home
== END 2024-03-13 17:00 | disposition home or self-care (01) ==
LOC: OB 03-16 07:52
PROVIDERS: PCP Family Medicine; Referring Provider Family Medicine; Visit Provider Family Medicine
DX: O43.193 Other malformation of placenta, third trimester (principal); Z3A.35 35 weeks gestation of pregnancy
CPT/HCPCS: 59025; G0378; G0379

== ENCOUNTER → 2024-03-27 14:10 | Outpatient (CLI) | payer OTHER, SELFPAY ==
[2024-03-28 16:56] LABS: Strep Grp B PCR POS for Grp B Strep
== END ==
PROVIDERS: PCP Family Medicine; Visit Provider Family Medicine
DX: Z34.80 Encounter for supervision of other normal pregnancy, unspecified trimester (principal)
CPT/HCPCS: 87653

== ENCOUNTER 2024-03-27 14:17 | Outpatient (CLI) | payer OTHER, SELFPAY ==
--- NOTE | 2024-03-27 14:47 | P.TNLD_ITS ---
Visit Information Visit Information Date of evaluation: 03/27/24 Primary OB Provider: Shereen Mendoza Comments/Additional reasons for admission: 28yo at 37w4d here for NST for marginal cord insertion. [facility] Medical History (Updated 03/27/24 @ 09:49 by Shereen Mendoza MD) Spontaneous vaginal delivery Encounter for routine adult health examination without abnormal findings History of heavy periods (2009) Irregular periods/menstrual cycles (2008) Painful menstrual periods (2009) Hayfever (2009) Anxiety (2012) Surgical History Anesthesia History of third molar tooth extraction (~2011) History of tonsillectomy and adenoidectomy (~2001) Family History (Updated 08/20/23 @ 10:25 by Xiao Singh RN) Father Hyperlipidemia Sleep apnea Mother Breast cancer Seasonal allergies Anxiety Congestive heart failure History of bilateral mastectomy Asthma History of endometrial ablation Brother No problems noted. Sister No problems noted. Grandfather Heart disease Heart attack Grandmother Heart failure COPD (chronic obstructive pulmonary disease) Heart disease Smoker Tremor Grandfather Dementia Arthritis Grandmother Arthritis Gallstones Aunt Colon cancer Aunt Breast cancer Social History marital status: number of children: 1 household members: spouse and children lives independently: Yes caregiver/support person: Yes housing: house pets and animals: Yes (2 cats, manages litter box) education level: master's degree occupational status: employed current occupational exposures/hazards: No special garcia needs: No travel history: over 6 months ago seatbelt use: always water heater temp set < 120 deg: Yes working smoke detector in home: Yes fire extinguisher in home: Yes carbon monox detector in home: Yes firearms in home: No do you feel safe at home: Yes Smoking Status: Never smoker second hand exposure: No alcohol intake: former substance use type: does not use during the past year weight has: other well-balanced diet: about half the time daily servings fruits/ve-4 caffeine: Yes (Aware of 200mg limit) Type(s) of exercise: walking frequency: 3-4 times per week Evaluation Evaluation Baseline heart rate: 120 Variability: Moderate (11-25) monitor accelerations: Present Monitor Decelerations: Absent Category of Tracing: Reactive Diagnosis, Plan/Disposition Final Diagnosis (1) Marginal insertion of umbilical cord: Status: Acute Plan/Disposition Plan: 28yo at 37w4d here for NST for marginal cord insertion. NST reactive. Continue testing. OB Disposition: home
== END 2024-03-27 14:50 | disposition home or self-care (01) ==
LOC: LABOR 14:20 → OB 03-30 08:11
PROVIDERS: PCP Family Medicine; Referring Provider Family Medicine; Visit Provider Family Medicine
DX: O43.893 Other placental disorders, third trimester (principal); Z3A.37 37 weeks gestation of pregnancy
CPT/HCPCS: 59025; 87653; G0378; G0379

== ENCOUNTER 2024-04-03 16:06 | Outpatient (CLI) | payer OTHER, SELFPAY ==
--- NOTE | 2024-04-03 16:45 | P.TNLD_ITS ---
Visit Information Visit Information Date of evaluation: 04/03/24 Primary OB Provider: Shereen Mendoza Comments/Additional reasons for admission: 28yo at 38w4d here for NST for marginal cord insertion. ON LICENSE OF [facility] Medical History (Updated 03/27/24 @ 09:49 by Shereen Mendoza MD) Spontaneous vaginal delivery Encounter for routine adult health examination without abnormal findings History of heavy periods (2009) Irregular periods/menstrual cycles (2008) Painful menstrual periods (2009) Hayfever (2009) Anxiety (2012) Surgical History Anesthesia History of third molar tooth extraction (~2011) History of tonsillectomy and adenoidectomy (~2001) Family History (Updated 08/20/23 @ 10:25 by Xiao Singh RN) Father Hyperlipidemia Sleep apnea Mother Breast cancer Seasonal allergies Anxiety Congestive heart failure History of bilateral mastectomy Asthma History of endometrial ablation Brother No problems noted. Sister No problems noted. Grandfather Heart disease Heart attack Grandmother Heart failure COPD (chronic obstructive pulmonary disease) Heart disease Smoker Tremor Grandfather Dementia Arthritis Grandmother Arthritis Gallstones Aunt Colon cancer Aunt Breast cancer Social History marital status: number of children: 1 household members: spouse and children lives independently: Yes caregiver/support person: Yes housing: house pets and animals: Yes (2 cats, manages litter box) education level: master's degree occupational status: employed current occupational exposures/hazards: No special garcia needs: No travel history: over 6 months ago seatbelt use: always water heater temp set < 120 deg: Yes working smoke detector in home: Yes fire extinguisher in home: Yes carbon monox detector in home: Yes firearms in home: No do you feel safe at home: Yes Smoking Status: Never smoker second hand exposure: No alcohol intake: former substance use type: does not use during the past year weight has: other well-balanced diet: about half the time daily servings fruits/ve-4 caffeine: Yes (Aware of 200mg limit) Type(s) of exercise: walking frequency: 3-4 times per week Evaluation Evaluation Baseline heart rate: 120 Variability: Moderate (11-25) monitor accelerations: Present Monitor Decelerations: Absent Category of Tracing: Reactive Diagnosis, Plan/Disposition Plan/Disposition Plan: 28yo at 38w4d here for NST for marginal cord insertion. NST reactive. Continue testing. OB Disposition: home
== END 2024-04-03 16:45 | disposition home or self-care (01) ==
LOC: OB 04-06 15:00
PROVIDERS: PCP Family Medicine; Referring Provider Family Medicine; Visit Provider Family Medicine
DX: O43.193 Other malformation of placenta, third trimester (principal); Z3A.38 38 weeks gestation of pregnancy
CPT/HCPCS: 59025; G0378; G0379

== ENCOUNTER → 2024-04-07 11:17 | Outpatient (CLI) | payer OTHER, SELFPAY ==
--- NOTE | 2024-04-07 11:19 | DI.US.S_ITS ---
PROCEDURE: US OB LIMITED INDICATIONS: growth for FRG OUTSIDE/PRIOR DATING DATA: Last menstrual period (LMP): 07/07/2023. LMP-based estimated date of delivery (GARY): 04/13/2024. The calculations are made using the clinical GARY of 04/13/2024. TECHNIQUE: Real-time scanning was performed of the fetus, with image documentation and biometric measurements. Endovaginal scanning: Not performed COMPARISON: [facility], , OB LIMITED, 11/28/2023, 13:57. FINDINGS: General: A single living intrauterine gestation is present. Presentation: Vertex. Placenta: Placental position is posterior, fundal , without previa. Amniotic fluid index: 12.6 cm, normal range is 5-24 cm. Single deepest vertical pocket is 6.5 cm. heart rate: 169 beats per minute. Maternal cervical canal: 2.3 cm long. Normal lower limit is 2.5 cm. biometrics: Biparietal diameter: 8.8 cm, 35 weeks 3 days Head circumference: 32.4 cm, 36 weeks 5 days Abdominal circumference: 33.6 cm, 37 weeks 3 days Femur length: 7 cm, 36 weeks 0 days Clinically estimated gestational age: 38 weeks 1 day Composite gestational age from present scan: 36 weeks 3 days Estimated weight and percentile: 3031 g, 29th percentile Other: Not applicable. IMPRESSION: Single living intrauterine at 38 weeks 1 day, GARY 04/13/2024. Estimated weight of 3031 g, 29th percentile. Cervix measures 2.3 cm on today's exam, previously 3.5 cm. Differential includes cervix incompetence or artifact. We strive to produce accurate, complete, and clear reports of imaging services. To assist us in improving patient care, this report was composed using standard report templates and voice recognition software. Therefore, it may contain abnormal punctuation, insertions and/or omissions. Occasional wrong-word or sound-alike substitutions may occur. Though we review the report and make efforts to correct it, we do recommend that the report be read carefully in proper context to recognize any text inaccuracies. Dictated by: Morgan Lloyd M.D. on 04/07/2024 at 14:15 Approved by: Morgan Lloyd M.D. on 04/07/2024 at 14:17
== END ==
LOC: US 11:18
PROVIDERS: PCP Family Medicine; Referring Provider Family Medicine; Visit Provider Family Medicine
DX: Z34.83 Encounter for supervision of other normal pregnancy, third trimester (principal); Z3A.38 38 weeks gestation of pregnancy
CPT/HCPCS: 76815

== ENCOUNTER 2024-04-08 11:39 | Outpatient (CLI) | payer OTHER, SELFPAY | END 2024-04-08 12:10 | disposition home or self-care (01) | LOC: LABOR 12:03 → OB 04-13 06:15 | PROVIDERS: PCP Family Medicine; Referring Provider Family Medicine; Visit Provider Family Medicine | DX: O36.5930 Maternal care for other known or suspected poor fetal growth, third trimester, not applicable or unspecified (principal); Z3A.39 39 weeks gestation of pregnancy | CPT/HCPCS: 59025; G0378; G0379 ==

== ENCOUNTER 2024-04-15 11:59 | Inpatient (IN) | payer OTHER, SELFPAY ==
[2024-04-15 12:31] VITALS: BP 129/86
[2024-04-15] MEDS: LACTATED RINGERS 1,000 ML 100 ML IV (13:00)
[2024-04-15 13:16] LABS: Add Manual Diff / Slide Review NO; Basophils Absolute Auto 100 /uL (0-100); Basophils Percent Auto 0.5 % (0-2); Eosinophils Absolute Auto 100 /uL (0-450); Eosinophils Percent Auto 0.8 % (2-4); Hematocrit 34.6 % (36-46); Hemoglobin 11.7 g/dL (12.0-16.0); Lymphocytes Absolute Auto 1300 /uL (1100-4500); Lymphocytes Percent Auto 12.6 % (25-40); Mean Corpuscular HGB Conc 33.9 % (30-36); Mean Corpuscular Volume 88.6 fL (80-100); Monocytes Absolute Auto 900 /uL (0-900); Monocytes Percent Auto 8.9 % (3-14); Neutrophils Absolute Auto 8100 /uL (1500-7000); Neutrophils Percent Auto 77.2 % (50-75); Platelet Count 244 X10^3/uL (150-400); Red Cell Distribution Width 13.6 % (11.6-14.8); White Blood Cell Count 10.4 X10^3/uL (4.5-11.0)
[2024-04-15] MEDS: AMPICILLIN 2,000 MG in SODIUM CHLORIDE 0.9% 100 ML 200 MG IV (13:20)
--- NOTE | 2024-04-15 13:35 | PM.OBHP.IH.1 ---
OB HPI Date/Time Date of admission: 04/15/24 Date Patient Seen: 04/15/24 History of Present Condition Chief complaint: observation of labor GARY Calculator Estimated Delivery Date Method Current WG Current Estimate 04/20/24 Manual 39w 2d Final GARY - CHIKA Other Estimates 04/13/24 LMP (Certain) 40w 2d 04/20/24 Ultrasound #1 39w 2d Estimated Gestational Age (weeks): 39w2d : 2 Para: 1 Narrative: 28yo at 39w2d here with regular contractions. Pt reports contractions began around 9:30am, increasing in intensity and frequency since then. No LOF. Minimal vaginal spotting. She is feeling her baby move regularly. The pts was complicated by FGR, resolved on subsequent scans. Also noted to have a marginal cord insertion. care: good care, initiated at week # (10) and pounds weight gain (46) Dating criteria OB: based on 1st trimester US only Ultrasounds: normal 1st trimester US and normal mid trimester US Abnormal ultrasound findings: growth restriction 1st percentile on anatomy scan Subsequent scans 13th-16th percentile Marginal cord insertion Obstetrical complications: growth restriction Medical complications OB: none Preadmission Labs Last OB Lab Results: Blood Type A Positive 09/23/23 10:50 Antibody Screen Negative 09/23/23 10:50 Hematocrit 34.6 % (36-46) L 04/15/24 12:50 Hemoglobin 11.7 g/dL (12.0-16.0) L 04/15/24 12:50 Hepatitis B Surface Antigen Negative s/c (NEGATIVE) 09/23/23 10:50 Hepatitis C Antibody Negative s/c (NEGATIVE) 09/23/23 10:50 Rubella Antibody 12.5 IU/mL (>15) L 09/23/23 10:50 Varicella-Zoster IgG Antibody 166 index (Immune >165) 09/23/23 10:50 Glucose 1 Hour 108 mg/dL (76-139) 01/20/24 15:56 Group B Streptococcus (PCR) Pos for grp b strep H 03/27/24 14:10 -: Urine: negative Genetic Screens: Quad screen: Normal External Labs -: Urine: negative Prior (ies) Past Pregnancies Del. Date GA/Weeks Labor Lgth Wt Sex Route Outcome Anesthesia Place Delv Breastfeed Preg Comp Name 04/17/23 37.1 6 6 lb 8 oz Female vaginal vacuum live - full term epidural IH 3+ months none [facility] Evaluation Evaluation Baseline heart rate: 125 Variability: Moderate (11-25) monitor accelerations: Present Monitor Decelerations: Absent Contraction Frequency (minutes): 5 Status: Category l Dilation (cm): 4 Effacement (%): 80 station: -2 Consistency: soft PFSH Medical History (Updated 03/27/24 @ 09:49 by Shereen Mendoza MD) Spontaneous vaginal delivery Encounter for routine adult health examination without abnormal findings History of heavy periods (2009) Irregular periods/menstrual cycles (2008) Painful menstrual periods (2009) Hayfever (2009) Anxiety (2012) Surgical History Anesthesia History of third molar tooth extraction (~2011) History of tonsillectomy and adenoidectomy (~2001) Family History (Updated 08/20/23 @ 10:25 by Xiao Singh RN) Father Hyperlipidemia Sleep apnea Mother Breast cancer Seasonal allergies Anxiety Congestive heart failure History of bilateral mastectomy Asthma History of endometrial ablation Brother No problems noted. Sister No problems noted. Grandfather Heart disease Heart attack Grandmother Heart failure COPD (chronic obstructive pulmonary disease) Heart disease Smoker Tremor Grandfather Dementia Arthritis Grandmother Arthritis Gallstones Aunt Colon cancer Aunt Breast cancer Social History marital status: number of children: 1 household members: spouse and children lives independently: Yes caregiver/support person: Yes housing: house pets and animals: Yes (2 cats, manages litter box) education level: master's degree occupational status: employed current occupational exposures/hazards: No special garcia needs: No travel history: over 6 months ago seatbelt use: always water heater temp set < 120 deg: Yes working smoke detector in home: Yes fire extinguisher in home: Yes carbon monox detector in home: Yes firearms in home: No do you feel safe at home: Yes Smoking Status: Never smoker second hand exposure: No alcohol intake: former substance use type: does not use during the past year weight has: other well-balanced diet: about half the time daily servings fruits/ve-4 caffeine: Yes (Aware of 200mg limit) Type(s) of exercise: walking frequency: 3-4 times per week Meds Home Medications and Allergies Home Medications Medication Instructions Recorded Confirmed Type cetirizine 10 mg tablet (Zyrtec) 10 mg PO DAILY 09/16/18 04/15/24 History prenat.vits,eula,ozb-kxeo-fhyzj 1 tab PO DAILY 06/21/22 04/15/24 History Allergies Allergy/AdvReac Type Severity Reaction Status Date / Time No Known Drug Allergies Allergy Verified 04/15/24 12:35 OB Exam Resp Effort & Inspection: normal respiratory effort Auscultation: clear to auscultation bilaterally Cardio Rate: regular rate Rhythm: regular rhythm Heart Sounds: S1 normal, S2 normal and no murmurs GI Inspection: non-distended Palpation: Yes soft and No tender Presentation: vertex Objective Labs 04/15/24 12:50 Labs: Laboratory Results - last 24 hr 04/15/24 12:50 WBC 10.4 RBC 3.90 L Hgb 11.7 L Hct 34.6 L MCV 88.6 MCH 30.0 MCHC 33.9 RDW 13.6 Plt Count 244 Neut % (Auto) 77.2 H Lymph % (Auto) 12.6 L [place] % (Auto) 8.9 Eos % (Auto) 0.8 L Baso % (Auto) 0.5 Neut # (Auto) 8100 H Lymph # (Auto) 1300 [place] # (Auto) 900 Eos # (Auto) 100 Baso # (Auto) 100 Assessment and Plan Assessment and Plan Assessment and Plan narrative: 28yo at 39w2d here in active labor. GBS positive, Rh positive. complicated by FGR, resolved, and marginal cord insertion. - Expectant management, anticipate - FHT reassuring, continuous monitoring - GBS positive, start ampicillin prophylaxis - Epidural for pain control - Will send placenta to pathology as per [facility] recommendations
--- NOTE | 2024-04-15 16:03 | PATH_ITS ---
[facility] Accession Number: [id number] No. of containers..01 Tissue . 01 Material submitted: . placenta - PLACENTA . 01 Diagnosis: A. Placenta, 39 Weeks and 2/7 days, Vaginal Delivery: Intact carroll placenta (522 grams, 10th - 25th percentile weight), with villi consistent with third trimester gestational age. Umbilical cord, three-vessels, eccentrically inserted with squamous metaplasia to the amnion layer; no evidence of arteritis, fibrin clots or funisitis. membranes, marginally inserted with rare pigment/meconium-laden macrophages and laminar decidual necrosis; no evidence of chorioamnionitis. Chorionic villi with retroplacental hemorrhagic clot and associated decidual necrosis (see comment), 5 small occlusive fibrin clots in small to medium size stem villus vessels, two subchorionic fibrin clots (0.6 and 0.9 cm), and focal distal villous hypoplasia; no evidence of villitis or infarction. . COMMENT: The findings of scattered clots and laminar decidual necrosis, raise the possibility of vascular malperfusion and may explain the relatively low placental weight (10-25th percentile); however, the significance of such findings needs clinical correlation. . The retroplacental hemorrhagic clot is consistent with focal placental abruption and while focally associated with compression of underlying villi, the latter does not appear infarcted. Clinical correlation is necessary to determine the significance of such findings. [facility] 04/27/2024 [facility]7 Local . 01 Electronically signed: . Yareli Cooper MD, Pathologist NPI- [id number] . 01 Gross description: . Received in formalin with two identifiers and placenta, is a discoid carroll placenta (522 grams, 17.1 x 14.2 x 3.4 cm). No accessory lobes are identified. . The membranes are ng and translucent with ng areas of thickening occupying apprroximately 40% of the membrane surface. They insert at the margin and have a point of rupture 3.7 cm from the nearest placental disc edge. . The cord measures 50.1 cm in length by 1.1 cm in average diameter with a leftward coil and an index of approximately 1 twist per 5 cm. The cord inserts eccentrically 5.2 cm from the nearest placental disc edge. Sectioning reveals unremarkable trivascular architecture with no knots or lesions identified. . The surface is blue-hines with normal arborizing vasculature. An area of ng discoloration is located centrally and occupies approximately 20% of the surface. The amnion is approximately 50% from the surface. No additional lesions are identified. . The maternal surface is apparently complete with an area of adherent hemorrhage measuring 5.5 x 2.1 cm and occupying approximately 10% of the maternal surface. No additional lesions are identified. The cut surface shows the aforementioned adherent clot slightly indenting the parenchyma. The remaining cut surface is red and spongy with no additional lesions identified. . Sign Writer Letterer Or Painter sections are submitted as follows: A1: Membrane roll and placental end of cord. A2: Membrane roll and end of cord. A3-A4: Full thickness adherent hemorrhage. A5-A6: Full thickness surface discoloration. A7-A9: Full thickness central unremarkable sections. ([id number]) /MINERVA 04/16/2024 1114 Local . 01 Pathologist provided ICD-10: O42.02 . 01 CPT . 529967 Specimen Comment: A courtesy copy of this report has been sent to [phone] Performed at: [address] [id number] MD Dale Blake MD Phone: [phone]
--- NOTE | 2024-04-15 16:48 | P.PCNOB_ITS ---
Labor & Delivery Delivery date: 04/15/24 Cervical ripening method: none Induction method: none Delivery augmentation: rupture of membranes Delivery monitor: external FHT and external uterine Route of delivery: Episiotomy description: None L&D Laceration Description: None Quantitative Blood Loss: 50 Anesthesia Type: Epidural Complications: None Narrative: PROCEDURE: at 39w2d presented in active labor and was admitted to Labor and Delivery. The patient progressed through the 1st stage over 6 hours. She received GBS prophylaxis with ampicillin. Pain was controlled with an epidural, which required multiple repeat boluses. ROM occured at 15:30 with clear fluid, when the pt was complete and ready to push. The patient progressed through the 2nd stage over 13 minutes and delivered a viable female infant with APGARs 9/9 at 15:43 via without complications. The cord was cut and clamped after it stopped pulsating. The placenta delivered with gentle cord traction, and appeared complete. The perineum and vagina were inspected with no lacerations. Needle and sponge counts were correct.? The vagina was inspected and no items were left in situ. Alejandrina was doing well with [place], her and her at bedside. PREPROCEDURE DIAGNOSIS: Intrauterine at 39w2d GBS positive, received adequate prophylaxis RH positive Marginal cord insertion POSTPROCEDURE DIAGNOSIS: Intrauterine at 39w2d, delivered Same as preprocedure Baby 1: Presentation: compound (with right hand) Position: Left Occiput Anterior Placenta delivery description: Spontaneous Cord Vessel Description: 3 Vessels score (1 min): 7 score (5 min): 9 weight: 6 lb 11.832 oz Plan for aftercare: Routine care
--- NOTE | 2024-04-15 16:50 | PM.AN.REGBLK ---
[facility] Pre-procedure PMH/ROS narrative: Anxiety and enviromental allergies Exam narrative: Negative ASA Class: II Labs: Hct 34.6 % (36-46) L 04/15/24 12:50 Plt Count 244 X10^3/uL (150-400) 04/15/24 12:50 Medications: Current Medications Generic Name Dose Route Start Last Admin Trade Name Rodrick PRN Reason Stop Dose Admin Acetaminophen 650 mg 04/15/24 16:48 Acetaminophen 325 Mg Tablet PO Q6HR PRN Pain, Mild (1-3) Carboprost Tromethamine 250 mcg 04/15/24 16:48 Carboprost 250 Mcg/Ml Ampul IM Q90MIN PRN Bleeding Diphtheria/Tetanus/Acell Pertussis 0.5 ml 04/15/24 16:48 Tet,Diph,Pertuss(Acell),Vac/Pf 0.5 Ml Syringe IM 04/15/24 16:49 .ONCE ONE Docusate Sodium 100 mg 04/16/24 09:00 Docusate 100 Mg Capsule PO DAILY KASSANDRA Emollient Ointment 1 applic 04/15/24 16:48 Lanolin Oint 7 Gm TOP PRN PRN Tenderness Oxytocin/Lactated Ringer's 30 unit in 500 mls @ 200 mls/hr 04/15/24 16:48 Oxytocin Premix IV CONT PRN Bleeding Protocol Tranexamic Acid 1,000 mg/ 100 mls @ 200 mls/hr 04/15/24 16:48 Sodium Chloride IV NOW PRN Bleeding Ibuprofen 600 mg 04/15/24 16:48 Ibuprofen 600 Mg Tablet PO Q6HR PRN Pain, Mild (1-3) Measles/Mumps/Rubella Vaccine Live 0.5 ml 04/15/24 16:48 Measles,Mumps,Rubella Vacc/Pf 0.5 Ml Vial SUBCUT 04/15/24 16:49 .ONCE ONE Methylergonovine Maleate 0.2 mg 04/15/24 16:48 Methylergonovine 0.2 Mg Tablet PO Q6HR PRN Heavy bleeding Methylergonovine Maleate 0.2 mg 04/15/24 16:48 Methylergonovine 0.2 Mg/Ml Vial IM NOW PRN Bleeding Misoprostol 800 mcg 04/15/24 16:48 Misoprostol 200 Mcg Tablet [place] NOW PRN Bleeding Misoprostol 1,000 mcg 04/15/24 16:48 Misoprostol 200 Mcg Tablet [place] NOW PRN Bleeding Misoprostol 400 mcg 04/15/24 16:48 Misoprostol 200 Mcg Tablet SL NOW PRN Bleeding Naloxone HCl 0.2 mg 04/15/24 16:48 Naloxone 0.4 Mg/Ml Vial IV Q2MIN PRN Opiate Reversal Oxycodone HCl 5 mg 04/15/24 16:48 Oxycodone Ir 5 Mg Tablet PO Q4HR PRN Pain, Moderate (4-6) Oxytocin 10 unit 04/15/24 16:48 Oxytocin 10 Unit/Ml Vial IM NOW PRN Bleeding Vit/Calcium/Iron/Folic Ac 1 tab 04/16/24 09:00 Vit,Calc/Iron/Folic 1 Tablet PO DAILY KASSANDRA Rho Immune Globulin 1,500 unit 04/15/24 16:48 Rho(D) Immune Globulin 1,500 Unit Syringe IM NOW PRN Mom Rh neg, Infant Rh pos Witch Pretty/Glycerin 1 each 04/15/24 16:48 Witch Pretty/Glycerin Pads TOP Q30M PRN Itching Allergies: Allergies Allergy/AdvReac Type Severity Reaction Status Date / Time No Known Drug Allergies Allergy Verified 04/15/24 12:35 Procedure Insertion date: 04/15/24 Insertion time: 13:49 Prep/Local: 1% lidocaine (chloroprep) Interspace: L3-4 Patient position: sitting Needle: 17 gauge Tuohy Loss of resistance with: saline ELENO at (cm): 6 Catheter placed at SKIN (cm): 11 Catheter in SPACE (cm): 5 Insertion: No CSF, No Blood, No Paresthesia with insertion, No Paresthesia with injection and No Test dose reaction Initial Medications TEST DOSE time: 13:50 BOLUS DOSE time: 13:56 BOLUS DOSE (mL): 3 BOLUS DOSE med: other (0.5% marcaine ) Infusion INFUSION: 0.125% bupivacaine and with fentanyl 2 mcg/mL Initial rate (mL/hr): 8 Subsequent interventions: 5cc 2% lido and 100mcg fentanyl at 1440 Post-procedure Anesthesia date START: 04/15/24 Anesthesia time START: 13:30 Anesthesia date END: 04/15/24 Anesthesia time END: 15:43 Post-procedure Anesthesia Assessment: Yes CV function: HR/BP stable, Yes Resp function: RR/sat/airway adequate, Yes Post-op hydration adequate, Yes Pain control adequate, Yes Nausea & vomiting absent, Yes Temperature > 36 C, Yes Mental status appropriate and Yes Anesthesia complications
[2024-04-15] MEDS: IBUPROFEN 600 MG TABLET PO (19:43)
[2024-04-16] MEDS: IBUPROFEN 600 MG TABLET PO ×2 (01:44→08:27)
[2024-04-16] MEDS: DOCUSATE 100 MG CAPSULE PO (08:27)
[2024-04-16] MEDS: PRENATAL VIT,CALC/IRON/FOLIC 1 TABLET 1 TAB PO (08:27)
--- NOTE | 2024-04-16 09:02 | PM.OBDS.1 ---
Discharge Providers Provider Date of admission: 04/15/24 11:59 Discharge Date: 04/16/24 Primary care physician: Shereen Mendoza MD Consults: 04/15/24 12:31 Consult to Anesthesiology Urgent Comment: Consulting Provider: Anesthesiologist Reason for consultation: Epidural 04/16/24 16:46 Consult to Spanish Lecturer Routine Comment: Discharge provider: Shereen Mendoza MD Summary Hospital Course Date Patient Seen: 04/16/24 Diagnoses: Intrauterine at 39w2d GBS positive, received adequate prophylaxis RH positive Marginal cord insertion Hospital Course: The pt presented in active labor. She received an epidural for pain control. She progressed to complete, and AROM was performed with clear fluid present. She then had an uncomplicated of a viable baby girl. There were no lacerations. , there were no complications. At the time of discharge she was voiding, ambulating, and passing flatus without difficulty. Her lochia was decreasing appropriately. Her pain was well controlled. She was with good latch. She will f/u in 6 weeks for check. She is undecided regarding contraception. Peripartum Data Delivery Method: Natural Vaginal Laceration Description: None Episiotomy description: None Procedures: Spontaneous vaginal delivery complications: none 1: Gender: Female Disposition of : home Time Spent with Patient Time attestation: Total time spent providing and/or coordinating discharge services: Objective Labs 04/15/24 12:50 Labs: Laboratory Results - last 24 hr 04/15/24 12:50 WBC 10.4 RBC 3.90 L Hgb 11.7 L Hct 34.6 L MCV 88.6 MCH 30.0 MCHC 33.9 RDW 13.6 Plt Count 244 Neut % (Auto) 77.2 H Lymph % (Auto) 12.6 L [place] % (Auto) 8.9 Eos % (Auto) 0.8 L Baso % (Auto) 0.5 Neut # (Auto) 8100 H Lymph # (Auto) 1300 [place] # (Auto) 900 Eos # (Auto) 100 Baso # (Auto) 100 Blood Type A Positive Antibody Screen Negative Exam Narrative Exam Narrative: Gen: NAD, sitting comfortably in bed, appears well CV: RRR, no murmurs Resp: clear to auscultation bilaterally Abd: soft, appropriately tender, fundus firm and below the umbilicus, nondistended Ext: no edema Discharge Plan Discharge Plan Patient Disposition: Home Discharge orders & Medications Prescriptions: New acetaminophen 325 mg Tablet 650 mg PO Q6HR PRN (Reason: Pain, Mild (1-3)) Qty: 30 0RF docusate sodium 100 mg Capsule 100 mg PO DAILY Qty: 30 0RF ibuprofen 600 mg Tablet 600 mg PO Q6HR PRN (Reason: Pain, Mild (1-3)) Qty: 30 0RF Continued cetirizine [Zyrtec] 10 mg tablet 10 mg PO DAILY prenat.vits,eula,[id number] Tablet 1 tab PO DAILY Follow up/Referrals: Shereen Mendoza MD [Primary Care Provider] - (6 week Appt w/ Dr. Mendoza: May 25, 2023 @ 10am) Diet/Activity/Treatments Diet: Diet as Tolerated and Regular Skin/Wound/Dressing Care Report to your healthcare provider any signs of infection, such as:: chills, fever, increased pain and unusual drainage Visit Report/Discharge Packet Instructions: DI for Labor and Delivery, Vaginal Stand Alone Forms: Discharge: Care, Patient Portal/API, Stroke Signs & Symptoms Discharge Data Primary Care Provider: Shereen Mendoza
[2024-04-16] MEDS: MEASLES,MUMPS,RUBELLA VACC/PF 0.5 ML VIAL SUBCUT (12:22)
[2024-04-16] MEDS: ACETAMINOPHEN 325 MG TABLET 650 MG PO (12:24)
== END 2024-04-16 14:00 | disposition home or self-care (01) | DRG 807 ==
PROVIDERS: Admitting Provider Family Medicine; PCP Family Medicine; Referring Provider Family Medicine; Visit Provider Family Medicine
DX: O99.824 Streptococcus B carrier state complicating childbirth (principal); Z37.0 Single live birth; Z3A.39 39 weeks gestation of pregnancy; Z67.10 Type A blood, Rh positive
CPT/HCPCS: 36415; 59050; 85025; 86850; 86900; 86901; G0379; J0290; J3010